=== PATIENT | male | born 1970 | race Hispanic/Latino ===

== ENCOUNTER 2024-02-13 13:51 | Emergency (ER) | payer BC ==
[~2024-02-13] VITALS: Ht 180.3 cm; Wt 106.6 kg
[2024-02-13 13:53] VITALS: TEMP 97.8
[2024-02-13 14:51] LABS: BASOPHILS # (AUTO) 0.05 K/uL (0.00-0.20); BASOPHILS % (AUTO) 0.5 % (0.0-5.0); EOSINOPHILS # (AUTO) 0.21 K/uL (0.00-0.70); EOSINOPHILS % (AUTO) 1.9 % (0.0-8.0); HEMATOCRIT 44.8 % (42-54); IMMATURE GRANULOCYTE ABSOLUTE 0.04 K/uL (0-1); LYMPHOCYTES # (AUTO) 2.9 K/uL (1.0-4.8); MEAN CORPUSCULAR HEMOGLOBIN 27.9 pg (27.0-33.0); MEAN CORPUSCULAR HGB CONC 32.8 g/dL (32.0-36.0); MEAN CORPUSCULAR VOLUME 85.2 fL (79-99); MONOCYTES # (AUTO) 0.9 K/uL (0.1-1.0); MONOCYTES % (AUTO) 8.1 % (3.0-13.0); NEUTROPHILS # (AUTO) 6.8 K/uL (1.8-7.7); NEUTROPHILS % (AUTO) 62.1 % (40.0-77.0); PLATELET COUNT (AUTO) 166 K/uL (130-400); RED BLOOD CELL COUNT(AUTO) 5.26 MIL/uL (4.50-6.20); RED CELL DISTRIBUTION WIDTH 13.5 % (11.0-15.5); WHITE BLOOD COUNT (AUTO) 10.9 K/uL (4.8-10.8)
[2024-02-13 15:13] LABS: POTASSIUM 3.7 mmol/L (3.5-5.1)
[2024-02-13] MEDS: cefTRIAXone 1G VIAL IVPB ONE (15:31)
[2024-02-13 15:41] VITALS: BP 144/90; PULSE 90; RESP 16; O2SAT 94
[2024-02-13] MEDS ORDERED: SULF1TAB42 PO (16:09)
[2024-02-13] MEDS ORDERED: AMOX-426 PO (16:09)
== END 2024-02-13 16:33 | disposition left against medical advice (07) ==
LOC: EDH 13:51
DX: E11.628 Type 2 diabetes mellitus with other skin complications (principal); L08.9 Local infection of the skin and subcutaneous tissue, unspecified
CPT/HCPCS: 99284; 96374; 80048; 85025; 87040; 87086 ×2; 87186 ×2; 83605; 36415; 73660; 87070; J0696